=== PATIENT | male | born 1995 ===

== ENCOUNTER 2022-04-22 09:06 | Emergency (ER) | payer SELFPAY ==
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
[2022-04-22] MEDS: KETOROLAC 60 MG/2 ML INJ IM ONE (14:25)
[2022-04-22 14:35] VITALS: BP 130/60
== END 2022-04-22 14:32 | disposition home or self-care (01) ==
LOC: ED 09:06
DX: S39.012A Strain of muscle, fascia and tendon of lower back, initial encounter (principal); S46.919A Strain of unspecified muscle, fascia and tendon at shoulder and upper arm level, unspecified arm, initial encounter; V89.2XXA Person injured in unspecified motor-vehicle accident, traffic, initial encounter; Y93.89 Activity, other specified; Y92.89 Other specified places as the place of occurrence of the external cause; Y99.8 Other external cause status
CPT/HCPCS: 72100; 96372; 99283; J1885